=== PATIENT | male | born 1955 | race Caucasian/White ===

== ENCOUNTER 2017-06-19 06:46 | Outpatient (CLI) | payer BC, OTHER ==
[2017-06-19 07:18] LABS: Hemoglobin A1c 5.5 % (4.0-6.0)
[2017-06-19 07:31] LABS: Cardiac Risk 4.4 (Less than 4.5)
[2017-06-19 09:28] LABS: PSA-Asymptomatic (SCREENING) 0.72 ng/mL (0-4.0); Thyroid Stimulating Hormone 2.5814 uIU/mL (0.35-4.94)
== END 2017-06-19 06:47 | disposition home or self-care (01) ==
LOC: MADLAB 06:46
PROVIDERS: ATTEND Family Medicine
DX: I10 Essential (primary) hypertension (principal)
CPT/HCPCS: 36415; 80061; 83036; 84443; G0103

== ENCOUNTER 2020-03-08 19:20 | Emergency (ER) | payer BC ==
[~2020-03-08 19:20] MED LIST: Sodium Chloride 0.9% 100 ML BAG ONE; Sodium Chloride Irrig Solution 250 ML BOT ONE
[2020-03-08] MEDS ORDERED: Lidocaine 1% 20 ML MDV ONE (19:27)
[2020-03-08] MEDS ORDERED: Morphine 4 MG/ML VIAL ONE ×2 (19:35→20:23)
[2020-03-08] MEDS ORDERED: CEFAZOLIN 1 GM VIAL ONE (19:35)
--- NOTE | 2020-03-08 19:54 | RAD ---
Exam:Right hand third and fourth digit 3 views HISTORY: Amputation COMPARISON: None FINDINGS: Amputation of the distal aspect of the third digit. Tuft fracture involving the fourth digi t with mild distraction. Soft tissue swelling at the tip of the fourth digit. IMPRESSION: Injury to the distal aspect of the third and fourth digit.
[2020-03-08 19:58] LABS: #Basophils 0.1 thou/uL (0.0-0.2); #Eosinphils 0.3 thou/uL (0.0-0.7); #Lymphocytes 2.1 thou/uL (1.20-3.40); #Monocytes 0.5 thou/uL (0.11-0.59); #Neutrophils 4.2 thou/uL (1.40-6.50); %Basophils 1.1 % (0.0-1.0); %Lymphocytes 29.3 % (21.0-51.0); %Monocytes 6.9 % (0.0-10.0); %Neutrophils 58.6 % (42.0-75.0); Hemoglobin 14.5 g/dL (14.0-18.0); Mean Corpuscular HGB CONC 31.9 g/dL (32.0-36.0); Mean Corpuscular Volume 87.8 fL (78.0-98.0); Mean Platelet Volume 6.6 fL (7.4-10.4); Platelet Count 235 thou/uL (130-400); RBC Distribution Width 12.7 % (11.5-14.5); Red Blood Cell (RBC) Count 5.18 mill/uL (4.70-6.10); White Blood Cell (WBC) Count 7.1 thou/uL (4.8-10.8)
[2020-03-08 20:01] LABS: PTT 28.1 SEC (22.9-36.1); Prothrombin Time 12.8 sec (12.0-14.7)
[2020-03-08 20:10] LABS: ALT (SGPT) 26 U/L (8-55); AST (SGOT) 21 U/L (5-34); Albumin 4.4 g/dL (3.4-4.8); Alkaline Phosphatase 82 U/L (40-110); Anion Gap 15 mmol/L (10-20); BUN (Urea Nitrogen) 24 mg/dL (8.4-25.7); Bilirubin, Total 0.4 mg/dL (0.2-1.2); Calc. Creatinine Clearance 0 mL/min (70-130); Calcium 9.6 mg/dL (7.8-10.44); Carbon Dioxide 24 mmol/L (23-31); Chloride 109 mmol/L (98-107); Estimated GFR-MDRD 53; Globulin 3.4 g/dL (2.4-3.5); Glucose 107 mg/dL (80-115); Potassium 3.8 mmol/L (3.5-5.1); Protein, Total 7.8 g/dL (5.8-8.1); Sodium 144 mmol/L (136-145)
== END 2020-03-08 20:41 | disposition short-term general hospital (02) ==
LOC: MADERS 19:20
DX: S62.632A Displaced fracture of distal phalanx of right middle finger, initial encounter for closed fracture (principal); S62.634A Displaced fracture of distal phalanx of right ring finger, initial encounter for closed fracture; K21.9 Gastro-esophageal reflux disease without esophagitis; E78.5 Hyperlipidemia, unspecified; I10 Essential (primary) hypertension; E78.00 Pure hypercholesterolemia, unspecified; X58.XXXA Exposure to other specified factors, initial encounter
CPT/HCPCS: 29125; 80053; 85025; 85610; 85730; 96374; 96375; 96376; J0690; J2001; J2270; J3490